=== PATIENT | female | born 1955 | race Caucasian/White ===

== ENCOUNTER 2016-09-03 07:27 | Day surgery (SDC) | payer OTHER ==
--- NOTE | ~2016-09-03 | EGD ---
EGD REPORT [facility] [address] [id number] NAME: SALOMÓN GUZMAN : 53 STATUS : REG [facility]#: [id number] AGE: 60 ADM/REG DATE : 09/03/16 MR#: [id number] REPORT SERV DATE: 09/03/16 DICTATED BY: CHRIS SHABAZZ DATE: 09/03/16 REPORT STATUS : Draft TRANSCRIBED BY: [employer] [facility] DATE: 09/03/16 Endoscopy Center Patient Name: Salomón Guzman Date of : 1955 Attending MD: CHRIS SHABAZZ MD Procedure Date No Time: 09/03/2016 Procedure: Colonoscopy Indications: High risk colon cancer surveillance: Personal history of colonic polyps Medicines: Propofol per Anesthesia Complications: No immediate complications. Procedure: Pre-Anesthesia Assessment: - ASA Grade Assessment: II - A patient with mild systemic disease. After I obtained informed consent, the scope was passed under direct vision. Throughout the procedure, the patient's blood pressure, pulse, and oxygen saturations were monitored continuously. The PCF [id number] was introduced through the anus and advanced to 5 cm into the ileum. The colonoscopy was performed without difficulty. The patient tolerated the procedure well. Findings: The terminal ileum appeared normal. A tattoo was seen at the hepatic flexure. A post-polypectomy scar was found at the tattoo site. A few small-mouthed diverticula were found in the sigmoid colon. The retroflexed view of the distal rectum and anal verge was normal and showed no anal or rectal abnormalities. At previous polyp site the tattoo was seen and the scar. no recurrent polyp Impression: - The examined portion of the ileum was normal. - A tattoo was seen at the hepatic flexure. A post-polypectomy scar was found at the tattoo site. - Diverticulosis in the sigmoid colon. Recommendation: - The patient will be observed post-procedure, until all discharge criteria are met. - Repeat colonoscopy in 5 years for surveillance. - The findings and recommendations were discussed with the patient and their family. - After the procedure, if you experience any pain in abdomen or chest,shortness of breath,fever,chills,blood in stool,rectal bleeding,vomiting of any EGD REPORT [address] [id number] NAME: SALOMÓN GUZMAN : [birth year] STATUS : REG [facility]#: [id number] AGE: 60 ADM/REG DATE : 09/03/16 MR#: [id number] REPORT SERV DATE: 09/03/16 DICTATED BY: CHRIS SHABAZZ DATE: 09/03/16 REPORT STATUS : Draft TRANSCRIBED BY: [employer] DATE: 09/03/16 material,nausea,black stools or weakness or dizziness, GO TO THE EMERGENCY IMMEDIATELY!!!!!!!!! Procedure Code(s): --- Professional --- 74129, Colonoscopy, flexible, proximal to splenic flexure; diagnostic, with or without collection of specimen(s) by brushing or washing, with or without colon decompression (separate procedure) Diagnosis Code(s): --- Professional --- K57.30, Diverticulosis of large intestine without perforation or abscess without bleeding Z86.010, Personal history of colonic polyps CPT copyright 2013 [employer]. All rights reserved. The codes documented in this report are preliminary and upon patent solicitor review may be revised to meet current compliance requirements. Chris Shabazz MD CHRIS SHABAZZ MD 09/03/2016 9:42 AM This report has been signed electronically. Number of Addenda: 0 Note Initiated On: 09/03/2016 9:16 AM Scope Withdrawal Time 0 hours 5 minutes 34 seconds [id number] [place] [id number]
[~2016-09-03 07:27] MED LIST: IBU-200200 MG PO; NEXIUM20 M1 PO; NOR25 PO; X5 PO; ZOL50 PO
== END 2016-09-03 23:59 | disposition home or self-care (01) ==
LOC: DMU 07:27
PROVIDERS: Internal Medicine Gastroenterology
PROC: 0DJD8ZZ Inspection of Lower Intestinal Tract, Via Natural or Artificial Opening Endoscopic (ICD-10-PCS; principal; 2016-09-03 09:00)
DX: Z12.11 Encounter for screening for malignant neoplasm of colon (principal); K57.30 Diverticulosis of large intestine without perforation or abscess without bleeding; F41.9 Anxiety disorder, unspecified; Z86.010 Personal history of colon polyps; Z88.2 Allergy status to sulfonamides; Z88.8 Allergy status to other drugs, medicaments and biological substances; Z79.1 Long term (current) use of non-steroidal anti-inflammatories (NSAID); Z79.899 Other long term (current) drug therapy; Z90.89 Acquired absence of other organs; Z98.890 Other specified postprocedural states